=== PATIENT | female | born 1970 | race Caucasian/White ===

== ENCOUNTER 2020-07-07 17:16 | Emergency (ER) | payer OTHER, BC ==
[2020-07-07] MEDS ORDERED: Ketorolac 60 MG/2 ML SDV IM ONE (17:22)
--- NOTE | 2020-07-07 18:27 | EDM.PDOC ---
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 Pain is achy, sharp, and worse with weight bearing and ambulation. No numbness/tingling. Pain has worsened over the day. Treatments [employer]: Reports: NSAIDS - Related Data Allergies Allergy/AdvReac Type Severity Reaction Status Date / Time No Known Allergies Allergy Verified 07/07/20 17:39 Past Medical History - Past Health History Medical/Surgical History: Denies Medical/Surgical History Social & Family History - Family History Family Medical History: Noncontributory - Tobacco Use Smoking Status *Q: Never Smoker - Caffeine Use Caffeine Use: Reports: Tea - Recreational Drug Use Recreational Drug Use: No ED ROS GENERAL - Review of Systems Review Of Systems: See Below Constitutional: Reports: No Symptoms HEENT: Reports: No Symptoms Respiratory: Reports: No Symptoms Cardiovascular: Reports: No Symptoms Endocrine: Reports: No Symptoms GI/Abdominal: Reports: No Symptoms : Reports: No Symptoms Musculoskeletal: Reports: Joint Pain Skin: Reports: No Symptoms Neurological: Reports: No Symptoms ED EXAM, GENERAL - Physical Exam Exam: See Below Exam Limited By: No Limitations General Appearance: Alert, No Apparent Distress Head: Atraumatic, Normocephalic Respiratory/Chest: No Respiratory Distress, No Accessory Muscle Use Extremities: Normal Inspection, Normal Range of Motion, Non-Tender, Other (favors left side and stiff with ambulating) Skin Exam: Warm, Dry, Intact, Normal Color, No Rash Course - Vital Signs Text/Narrative:: Patient took motrin earlier and doesn't want toradol or muscle relaxers. No work for2 days. Heat, range of motion exercises, and low impact cardio. No lifting or carrying more than 10 pounds x 2 weeks. Follow up with Dr. Beth. Last Recorded V/S: Last Vital Signs Temp 37.1 C 07/07/20 17:43 Pulse 77 07/07/20 17:43 Resp 18 07/07/20 17:43 BP 120/83 07/07/20 17:43 Pulse Ox 100 07/07/20 17:43 - Orders/Labs/Meds Orders: Active Orders 24 hr Category Date Time Status Hip Min 2V Bi [CR] Stat Exams 07/07/20 17:22 Taken Meds: Medications Discontinued Medications Generic Name Dose Route Start Last Admin Trade Name Rosa PRN Reason Stop Dose Admin Ketorolac Tromethamine 60 mg 07/07/20 17:22 Toradol IM 07/07/20 17:23 ONETIME ONE Departure - Departure Time of Disposition: 18:15 Disposition: Home, Self-Care 01 Condition: Good Clinical Impression: Strain of left hip Qualifiers: Encounter type: initial encounter Qualified Code(s): S76.012A - Strain of muscle, fascia and tendon of left hip, initial encounter - Discharge Information *PRESCRIPTION DRUG MONITORING PROGRAM REVIEWED*: Not Applicable *COPY OF PRESCRIPTION DRUG MONITORING REPORT IN PATIENT MIGUE: Not Applicable Instructions: Hip Pain Referrals: PCP,None [Primary Care Provider] - Forms: ED Department Discharge Additional Instructions: Discharge home. No lifting, running or squatting. Do not lift anything over 10lbs for 2 weeks. Stay home from work 07/08/20 and 07/09/20, reevaluate on the 07/10/20. Use heat and range of motion exercises. Follow up with Dr. Beth, possible physical therapy. Call or return to the ER if you have any questions or concerns. Sepsis Event Note (ED) - Evaluation Sepsis Screening Result: No Definite Risk - Focused Exam Vital Signs: Vital Signs Temp Pulse Resp BP Pulse Ox 07/07/20 17:43 37.1 C 77 18 120/83 100 07/07/20 17:22 37.1 C 77 18 120/83 100 - My Orders Last 24 Hours: My Active Orders 07/07/20 17:22 Hip Min 2V Bi [CR] Stat - Assessment/Plan Last 24 Hours: My Active Orders 07/07/20 17:22 Hip Min 2V Bi [CR] Stat
--- NOTE | 2020-07-08 09:09 | CR ---
Date of Service: 07/07/20 Clinical Data: hip pain PELVIS AND BOTH HIPS: There are mild osteoarthritic changes bilaterally. There are mild degenerative changes involving the symphysis pubis and SI joints. No acute abnormalities. No lytic or blastic bone lesions. [id number] MTDD
== END 2020-07-07 18:02 | disposition home or self-care (01) ==
LOC: LB.ED 17:16
DX: S76.012A Strain of muscle, fascia and tendon of left hip, initial encounter (principal); X50.9XXA Other and unspecified overexertion or strenuous movements or postures, initial encounter
CPT/HCPCS: 73521; 99283